=== PATIENT | male | born 1950 | race Caucasian/White ===

== ENCOUNTER → 2018-01-14 15:53 | Outpatient (CLI) | payer MEDICARE, OTHER, SELFPAY ==
--- NOTE | 2018-01-14 10:30 | LES_PTH ---
PATIENT: JOEY GONZALES LOC: [facility] U#:[id number] AGE/SX: 75/M ROOM: RE01/14/[address]: Dr. Buzz Bhat MD : 1950 BED: DIS: SPEC #: [id number] RECD: 01/14/18 15:22 STATUS: ANDRES AI #: [id number] PADMINI: 01/14/18 10:[address]: Buzz Bhat DEPT: SURGICAL PATHOLOGY RECD BY: Yonatan Chaves Tissues: Skin of leg, NOS Procedures: Surgery Specimen Level IV HEADER OPERATION: Punch biopsy PRE-OP DIAGNOSIS: Nonhealing skin lesion back TISSUE SUBMITTED: 6 mm punch MICROSCOPIC DIAGNOSIS Skin lesion of back, punch biopsy: Basal cell carcinoma, superficial, nodular. See comment. AM:rossi 01/16/18 COMMENT The lesion is focally ulcerated and extends to the peripheral margin of excision. Clinical correlation is suggested. MICROSCOPIC DESCRIPTION Slides are reviewed. GROSS DESCRIPTION Received is one container labeled with the patient's name and not further designated. The specimen consists of a punch biopsy of nunez-white skin measuring 0.6 cm in diameter and 0.7 cm in length. The specimen is longitudinally bisected and submitted entirely in one cassette. / SJ:rg 01/15/18 TC:0 [facility]: [id number]
== END ==
PROVIDERS: Family Provider Family Medicine; PCP Family Medicine; Visit Provider Family Medicine
DX: L98.9 Disorder of the skin and subcutaneous tissue, unspecified (principal)
CPT/HCPCS: 88305

== ENCOUNTER → 2018-03-07 16:32 | Outpatient (CLI) | payer MEDICARE, SELFPAY ==
--- NOTE | 2018-03-07 16:38 | RAD_ITS ---
STUDY: X-RAY - RIGHT WRIST REASON FOR EXAM: Male, 67 years old. Wrist pain TECHNIQUE: 4 view(s) of the wrist were obtained. COMPARISON: None. FINDINGS: Normal visualized distal radius and ulna. Normal radiocarpal articulation. Normal distal radioulnar articulation. Normal carpal bones. Normal carpal articulations. Normal carpometacarpal articulation of the thumb. Normal second through fifth carpometacarpal articulations. There is a subtle lucency at the base of the first metacarpal. This may represent a nondisplaced fracture. The soft tissue structures are unremarkable. RAD/Wrist min 3 Views IMPRESSION: Question nondisplaced fracture at the base of the first metacarpal. Please clinically correlate for point tenderness in this region. Electronically Signed: Kip Viera DO at 8:47 EDT Tel , Service support ,
== END ==
PROVIDERS: Family Provider Family Medicine; PCP Family Medicine; Visit Provider Family Medicine
DX: M25.531 Pain in right wrist (principal)
CPT/HCPCS: 73110

== ENCOUNTER → 2018-03-14 15:59 | Outpatient (CLI) | payer MEDICARE, SELFPAY | PROVIDERS: Family Provider Family Medicine; PCP Family Medicine; Visit Provider Family Medicine | DX: T81.4XXA Infection following a procedure, initial encounter (principal) | CPT/HCPCS: 87070; 87077; 87186; 87205 ==

== ENCOUNTER → 2019-01-13 07:50 | Outpatient (CLI) | payer MEDICARE, SELFPAY ==
[2019-01-13] VITALS (10 sets, daily range): BP systolic 124–142; BP diastolic 62–76; PULSE 60–71; RESP 12–18; O2SAT 94–100; BMI 41.6
--- NOTE | 2019-01-13 | BON_PTH ---
PATIENT: JOEY GONZALES LOC: CT U#:[id number] AGE/SX: 75/M ROOM: RE01/13/[address]: Dr. Dani Alvarez MD : 1950 BED: DIS: SPEC #: [id number] RECD: 01/13/19 09:46 STATUS: ANDRES CLOUD #: [id number] PADMINI: 01/13/19 00:[address]: Dani Alvarez DEPT: SURGICAL PATHOLOGY RECD BY: Josemanuel Rodriguez ENTERED: 01/13/19 10:51 SP TYPE: Bone OTHR DR: Dr. Buzz Bhat MD Tissues: Tibia, NOS Procedures: Surgery Specimen Level IV HEADER OPERATION: CT guided right tibia biopsy PRE-OP DIAGNOSIS: Right tibial lesion TISSUE SUBMITTED: Right proximal tibia, 18 gauge core x5 MICROSCOPIC DIAGNOSIS Right tibial lesion, CT-guided proximal tibia biopsy: Peripheral blood and scant degenerative tissue, not further diagnostic. CE:rossi 01/14/19 COMMENT Case has been reviewed in consultation with Dr. Haywood who concurs with the above diagnosis. IDC:AM MICROSCOPIC DESCRIPTION Slides are reviewed. GROSS DESCRIPTION Received in fixative is one container labeled with the patient's name and designated right tibial lesion. The specimen consists of cores of reddish-nunez soft tissue measuring in aggregate 1 x 0.1 x <0.1 cm. The specimen is submitted in its entirety in one cassette. / JASIEL:rossi 01/13/19 TC:5 CPT: 38720
--- NOTE | 2019-01-13 08:13 | CT_ITS ---
PROCEDURE: CT GUIDED biopsy of the proximal right tibia. DATE: January 13, 2019. INDICATION: Male, 68 years old. Lytic lesion in the proximal metaphysis of the right tibia. PHYSICIAN: Ilan Pacheco M.D. RADIATION DOSAGE (If Supplied By Facility): CTDIvol = ( 12.2 ) mGy, DLP = ( 160.57 ) mGycm. Individualized dose optimization techniques were utilized. PROCEDURE: The risks, benefits, and alternatives to the procedure were explained to the patient. The specific risk of hemorrhage requiring further treatment or intervention was detailed and accepted. Follow-up instructions were discussed with the patient as well. Written informed consent was obtained. The patient was brought into the CT suite and placed in the supine position. . An appropriate entry site was identified. The overlying skin was prepped and draped in the usual sterile fashion. 1% lidocaine was administered subcutaneously for local anesthesia. Conscious sedation was performed. The patient received 2 mg of Versed and 75 mcg of fentanyl. Conscious sedation was started at 9:17 AM and terminated at 9:26 AM. The patient was independently monitored by the department nurse. Under CT guidance, a total of 5 passes were performed utilizing an 18-gauge core biopsy needle system. The specimens were then placed in the appropriate fluid and transported to the laboratory for analysis. Hemostasis was obtained. The patient tolerated the procedure well without immediate complications. CT/Biopsy/Inj or Needle Placement IMPRESSION: Successful CT guided biopsy of the proximal tibial lesion, as described above. Electronically Signed: Ilan Pacheco, at 10:08 EDT , Service support ,
[2019-01-13 08:15] LABS: Absolute Lymphocyte Count 2.25 X10^3/ul (0.83-4.51); Basophil# 0.02 X10^3/uL; Basophil% 0.2 % (0-1); Eosinophil# 0.16 X10^3/uL; Hematocrit 44.5 % (40-54); Hemoglobin 14.7 g/dl (13.0-16.5); Lymphocyte # 2.25 X10^3/ul (4.0); Lymphocyte % 27.6 % (19-41); Mean Corpuscular Volume 87.8 fL (80-94); Mean Platelet Vol. 9.8 fl (6.2-12.0); Monocyte# 0.71 X10^3/uL; Monocyte% 8.7 % (0-10); Neutrophil % 61.4 % (47-70); Platelet Count 165 K/mm3 (150-450); RBC Distribution Width CV 14.3 % (11.6-14.6); RBC Distribution Width SD 45.9 fl (35.1-43.9); Red Blood Count 5.07 M/mm3 (4.6-6.2); White Blood Count 8.2 K/mm3 (4.4-11.0)
[2019-01-13 08:16] LABS: POSITIVE COUNT NO; POSITIVE DIFFERENTIAL NO; POSITIVE MORPHOLOGY NO
[2019-01-13 08:24] LABS: Creatinine, Serum 1.24 mg/dL (0.70-1.30); EST Glomerular Filtration Rate 61 mL/min (>60); Est Glom Filt Rate - Afr Amer 74 mL/min (>60)
[2019-01-13 08:29] LABS: Partial Thromboplast Time 30.3 Seconds (24.1-36.2)
[2019-01-13] MEDS: Midazolam 2 MG/2 ML Syringe IV (09:16)
[2019-01-13] MEDS: fentaNYL 100 MCG/2 ML Ampul IV ×2 (09:17→09:43)
== END ==
LOC: CT 07:55
PROVIDERS: Family Provider Family Medicine; PCP Family Medicine; Referring Provider Orthopaedic Surgery; Visit Provider Orthopaedic Surgery
DX: D16.21 Benign neoplasm of long bones of right lower limb (principal); G80.9 Cerebral palsy, unspecified; E78.00 Pure hypercholesterolemia, unspecified; K21.9 Gastro-esophageal reflux disease without esophagitis; E66.9 Obesity, unspecified; Z79.899 Other long term (current) drug therapy
CPT/HCPCS: 20225; 36415; 77012; 82565; 85025; 85610; 85730; 88305; 88311; 99156; J7040; A4216

== ENCOUNTER → 2023-05-24 | Outpatient (CLI) | payer MEDICARE, SELFPAY ==
[2023-05-24 15:29] LABS: AST(SGOT) 22 U/L (15-37); Alanine Aminotransfer ALT/SGPT 28 U/L (16-61); Albumin, Serum 3.8 g/dL (3.2-5.0); Alkaline Phosphatase 68 U/L (45-117); Anion Gap 2 (5-15); BUN 16 mg/dL (7-18); BUN/Creat Ratio 14.7 RATIO (10-20); Calcium,Total 9.3 mg/dL (8.5-10.1); Chloride 106 mmol/L (98-107); Creatinine, Serum 1.09 mg/dL (0.70-1.30); EST Glomerular Filtration Rate 70 mL/min (>60); Est Glom Filt Rate - Afr Amer 85 mL/min (>60); Globulin 3.9 g/dL (2.2-4.2); Glucose 174 mg/dL (74-106); Potassium 4.3 mmol/L (3.5-5.1); Protein, Total 7.7 g/dL (6.4-8.2); Sodium Level 137 mmol/L (136-145)
== END | disposition home or self-care (01) ==
LOC: MFPLAB 12:21
PROVIDERS: PCP Family Medicine; Visit Provider Family Medicine
DX: I10 Essential (primary) hypertension (principal)
CPT/HCPCS: 36415; 80053

== ENCOUNTER 2023-08-11 18:25 | Emergency (ER) | payer MEDICARE, SELFPAY ==
[2023-08-11 18:27] VITALS: BP 118/61; PULSE 57; RESP 15; TEMP 36.5; O2SAT 95
--- NOTE | 2023-08-11 19:09 | EKG12_ITS ---
Test Reason : dysrhythmia Blood Pressure : / mmHG Vent. Rate : 053 BPM Atrial Rate : 053 BPM P-R Int : 176 ms QRS Dur : 090 ms QT Int : 456 ms P-R-T Axes : 011 064 054 degrees QTc Int : 427 ms Sinus bradycardia Otherwise normal ECG Confirmed by JOSE MONZON, JIGNA ([id number]), industrial editor LAYLA CRISTINA ([id number]) on 08/13/2023 1:25:39 PM Referred By: Confirmed By:JIGNA GARCIA MD
[2023-08-11 19:29] VITALS: BMI 41.3
[2023-08-11 19:30] LABS: Absolute Lymphocyte Count 1.98 X10^3/uL (0.83-4.51); Absolute Neutrophil Count 7.2 X10^3/uL (2.0-7.7); Basophil# 0.04 X10^3/uL; Basophil% 0.4 % (0-1); Eosinophil# 0.19 X10^3/uL; Eosinophils% 1.8 % (0-5); Hematocrit 43.9 % (40-54); Hemoglobin 14.2 g/dL (13.0-16.5); Lymphocyte # 1.98 X10^3/ul (0.83-4.51); Mean Corp Hgb Conc 32.3 g/dL (32-36); Mean Corpuscular Hgb 28.7 pg (27.0-32.0); Mean Corpuscular Volume 88.9 fL (80-94); Mean Platelet Vol. 10.1 fl (6.2-12.0); Monocyte# 0.96 X10^3/uL; Monocyte% 9.2 % (0-10); NRBC Flagged by Analyzer 0 % (0-5); Neutrophil # 7.19 X10^3/uL (2.7-7.7); Neutrophil % 69.1 % (47-70); Platelet Count 178 K/mm3 (150-450); RBC Distribution Width CV 13.2 % (11.6-14.6); RBC Distribution Width SD 42.8 fl (35.1-43.9); Red Blood Count 4.94 M/mm3 (4.6-6.2); White Blood Count 10.4 K/mm3 (4.4-11.0)
[2023-08-11 19:49] VITALS: TEMP 36.6
[2023-08-11] MEDS: Morphine 4 MG/ML Syringe IV (19:56)
[2023-08-11] MEDS: Ondansetron 4 MG/2 ML Vial IV (19:57)
[2023-08-11 20:13] LABS: AST(SGOT) 84 U/L (15-37); Alanine Aminotransfer ALT/SGPT 57 U/L (16-61); Albumin, Serum 3.6 g/dL (3.2-5.0); Alkaline Phosphatase 80 U/L (45-117); Anion Gap 6 (5-15); BUN 16 mg/dL (7-18); BUN/Creat Ratio 14.3 RATIO (10-20); Bilirubin, Direct 0.88 mg/dL (0.00-0.30); Calcium,Total 9.5 mg/dL (8.5-10.1); Chloride 108 mmol/L (98-107); Creatinine, Serum 1.12 mg/dL (0.70-1.30); EST Glomerular Filtration Rate 68 mL/min (>60); Est Glom Filt Rate - Afr Amer 82 mL/min (>60); Globulin 3.8 g/dL (2.2-4.2); Glucose 194 mg/dL (74-106); Lipase 29 U/L (13-75); Potassium 4.2 mmol/L (3.5-5.1); Protein, Total 7.4 g/dL (6.4-8.2); Sodium Level 139 mmol/L (136-145); Troponin-I HS 9 pg/mL (3.0-78.0)
[2023-08-11 20:15] VITALS: PULSE 70; RESP 17; O2SAT 97
--- NOTE | 2023-08-11 20:16 | US_ITS ---
STUDY: ABDOMINAL ULTRASOUND - RIGHT UPPER QUADRANT REASON FOR VISIT: Male, 73 years old ruq abd pain TECHNIQUE: Ultrasound evaluation of the right upper quadrant was performed with real-time and static garcia-scale imaging. TECHNICAL QUALITY: Adequate. COMPARISON: None. FINDINGS: Liver: The liver measures 17.5 cm. There is increased echogenicity consistent with fatty infiltration. The bile ducts are within normal limits. There is hepatic color flow. The direction of portal flow is hepatopetal. There is no demonstrated mass lesion. Gallbladder: Normal distended gallbladder. The gallbladder wall measures 2 mm. There is a negative sonographic Price''s sign. There is no pericholecystic fluid. There are no gallstones. Common Bile Duct (C.B.D.): The common bile duct measures 7 mm. Pancreas: There is nonvisualization of the pancreas. st. Right Kidney: Normal size of the right kidney. The right kidney measures 10.7 cm. Normal renal cortex. The right cortex measures 1.2 cm. There is no demonstrated renal mass or cyst. There is no right hydronephrosis. US/Gallbladder IMPRESSION: Fatty infiltration of the liver. Electronically Signed: Jens Vaca MD at 22:06 [facility] ,
--- NOTE | 2023-08-11 20:42 | CT_ITS ---
STUDY: CT ABDOMEN AND PELVIS WITH CONTRAST REASON FOR EXAM: Male, 73 years old. abdominal pain RADIATION DOSAGE (If Supplied By Facility): CTDIvol = ( 30.84 ) mGy, DLP = ( 1817.36 ) mGycm TECHNIQUE: Transaxial images were obtained from the dome of the diaphragm to the symphysis pubis without oral contrast. IV 100mL Isovue-370 was administered. Sagittal and coronal images were reconstructed. Individualized dose optimization techniques were used for this CT. COMPARISON: None. FINDINGS: The visualized lung bases are unremarkable. The visualized portions of the heart are within normal limits. Normal liver. Normal gallbladder and extrahepatic biliary system. Normal spleen. Normal pancreas. Normal bilateral adrenal glands. Normal right kidney. Normal left kidney. Normal visualized stomach. Normal small intestine. There are multiple colonic diverticula consistent with diverticulosis. The appendix is visualized and appears normal. Normal abdominal aorta. Normal inferior vena cava. Normal retroperitoneum. Normal urinary bladder. Normal abdominal wall. Normal osseous structures. CT/Abdomen/Pelvis W IV Cont ONLY IMPRESSION: Sigmoid diverticulosis without diverticulitis. Electronically Signed: Jens Vaca MD at 22:55 EST ,
--- NOTE | 2023-08-11 23:02 | ED.VIS.GI ---
HPI HPI - GI History of Present Illness Chief Complaint: Abd Pain Narrative Narrative: 73-year-old male presenting with abdominal pain. He states the pain started about 530. The last meal he ate was ham at 4. Patient states he eats sausage make muffins for breakfast with hashbrowns. He did not have any symptoms with this. Patient describes the pain as aching and throbbing in the epigastrium. No right upper quadrant or lower abdominal pain. No fever or chills. He vomited once when he arrived in the ER but otherwise feels okay. PFSH PFSH Medical History Hyperchloremia Hypertension Home Medications lisinopril 20 mg tablet 20 mg PO DAILY 01/13/19 [History Last Taken Unknown] simvastatin 40 mg tablet 40 mg PO QHS 01/13/19 [History Last Taken Unknown] ondansetron 4 mg disintegrating tablet 4 mg PO Q8H PRN PRN Nausea #20 tabs 08/11/23 [Rx Last Taken Unknown] Allergy/AdvReac Type Severity Reaction Status Date / Time No Known Allergies Allergy Verified 08/11/23 18:31 Social History Smoking Status: Never smoker ROS ROS ED Constitutional Constitutional ED: Denies chills, fever(s) or sweats Eyes Eyes: Denies blurry vision or change in vision ENT ENT ED: Denies ear pain, rhinorrhea or sore throat Cardiovascular Cardiovascular: Denies chest pain, palpitations or racing heartbeat Respiratory/Chest Respiratory/Chest: Denies cough, dyspnea or sputum Gastrointestinal Gastrointestinal: Reports abdominal pain, nausea and vomiting; Denies constipation or diarrhea Genitourinary Genitourinary ED: Denies dysuria, hematuria or urinary frequency Musculoskeletal Musculoskeletal: Denies arthralgias, myalgias or neck pain Integumentary Denies abscess, Abrasions or rash Neurologic Neurologic: Denies headache(s), paresthesias or weakness Psychiatric Psychiatric: Denies anxiety, depression, suicidal ideation or suicidal thoughts Endocrine Endocrinology: Denies polydipsia or polyuria EXAM Physical Exam Const Vital Signs: 08/11/23 18:27 08/11/23 19:49 08/11/23 20:15 Temperature 97.7 F L 98 F Temperature Source Oral Oral Pulse Rate 57 L 70 Respiratory Rate 15 17 Blood Pressure 118/61 Blood Pressure Mean 80 Pulse Ox 95 97 Oxygen Delivery Method Room Air Room Air Positive well nourished and obese General Appearance ED: NAD; Negative for pallor Nutritional Appearance: obese HEENT Reports moist mucous membranes normocephalic and atraumatic Eyes PERRL and EOMs intact bilaterally General Eye ED: Negative for pale conjunctiva or scleral icterus Resp normal respiratory effort Cardio regular rate and regular rhythm GI GI Narrative: Negative Price sign. Palpation: tender epigastric; Negative for guarding or rigid Back/Spine no CVA tenderness Neuro CN's II-XII intact bilaterally Sensorium / Orientation: alert Psych mental status grossly normal and thought process normal Skin General Skin Exam: Negative for jaundice or pallor MDM MDM MDM Narrative Medical decision making narrative: Patient presenting with epigastric pain. Patient presenting with right flank pain. Differential includes colitis, diverticulitis, gastritis, pancreatitis, acute cholecystitis, constipation, appendicitis, UTI, pyelonephritis, calculi, ureteral calculi, obstruction, malignancy, dehydration, electrolyte abnormalities, ACS ischemia/dysrhythmia. Chest x-ray to rule out pneumonia.. CBC was obtained to assess with blood cell count, hemoglobin, platelets. CMP to assess liver function, renal function, electrolytes, glucose. EKG was obtained to assess for atypical cardiac presentation. High-sensitivity troponin obtained to assess for ischemia. CBC shows normal white blood cell count 10.4. Hemoglobin stable 14.2. Platelets 178. Renal function electrolytes normal. Liver panel shows a total bilirubin 1.5, direct bilirubin 0.88, AST 84, ALT 77. Alk phosphatase 80. Lipase 29. Patient pain-free after dose of morphine. CT of the abdomen pelvis with IV contrast was obtained which shows no acute process. Since his LFTs were elevated we did follow this with the right upper quadrant ultrasound which was negative. Patient still pain-free. We discussed follow-up with general surgery with possibility of HIDA scan. We discussed bland diet and low-fat diet. Return precautions discussed. Impression: 1. Abdominal pain 2. Nausea/vomiting 3. Elevated liver enzymes Lab Data Attestation: I reviewed the patient's lab results. Labs: Laboratory Results - last 24 hr 08/11/23 19:25 WBC 10.4 RBC 4.94 Hgb 14.2 Hct 43.9 MCV 88.9 MCH 28.7 MCHC 32.3 RDW Std Deviation 42.8 RDW Coeff of Gemma 13.2 Plt Count 178 MPV 10.1 Immature Gran % (Auto) 0.500 Neut % (Auto) 69.1 Lymph % (Auto) 19.0 [place] % (Auto) 9.2 Eos % (Auto) 1.8 Baso % (Auto) 0.4 Absolute Neuts (auto) 7.2 Absolute Lymphs (auto) 1.98 Nucleated RBC % 0 Sodium 139 Potassium 4.2 Chloride 108 H Carbon Dioxide 25.0 Anion Gap 6 BUN 16 Creatinine 1.12 Estim Creat Clear Calc 54.10 Est GFR (MDRD) Af Amer 82 Est GFR (MDRD) Non-Af 68 BUN/Creatinine Ratio 14.3 Glucose 194 H Calcium 9.5 Total Bilirubin 1.50 H Direct Bilirubin 0.88 H AST 84 H ALT 57 Alkaline Phosphatase 80 Troponin I High Sens 9 Total Protein 7.4 Albumin 3.6 Globulin 3.8 Lipase 29 Radiography Diagnostic Testing: Clinical Impression(s) from Imaging Studies Gallbladder Ultrasound 08/11/23 20:16 IMPRESSION: Fatty infiltration of the liver. Electronically Signed: Jens Vaca MD at 22:06 EST Reading Location ID and State: [id number] / [facility] Tel , Service support , Abdomen/Pelvis CT 08/11/23 20:42 IMPRESSION: Sigmoid diverticulosis without diverticulitis. Electronically Signed: eJns Vaca MD at 22:55 EST , Discharge Plan Triage Chief Complaint: Abd Pain ED Provider: Best Dixon Dx/Rx/DC Orders Instructions: ED Abdominal Pain Unkn Cause Male... Prescriptions: New ondansetron 4 mg tablet,disintegrating 4 mg PO Q8H PRN PRN (Reason: Nausea) Qty: 20 0RF No Action lisinopril 20 MG tablet 20 mg PO DAILY simvastatin 40 MG tablet 40 mg PO QHS Primary Care Provider: Buzz Bhat Referrals: Adryan Hargrove MD [Med Staff - Active Staff] - 3-5 Days Buzz Bhat MD [Primary Care Provider] - Disposition Disposition: Home, Self Care
== END 2023-08-11 23:18 | disposition home or self-care (01) ==
PROVIDERS: Emergency Provider Student in an Organized Health Care Education/Training Program; PCP Family Medicine; Visit Provider Student in an Organized Health Care Education/Training Program
DX: R10.9 Unspecified abdominal pain (principal); R11.2 Nausea with vomiting, unspecified; R74.8 Abnormal levels of other serum enzymes; I10 Essential (primary) hypertension; E78.00 Pure hypercholesterolemia, unspecified; Z79.899 Other long term (current) drug therapy
CPT/HCPCS: 74177; 76705; 80048; 80076; 83690; 84484; 85025; 93005; 96374; 96375; 99282; Q9967; A4216; J2405

== ENCOUNTER → 2023-09-04 | Outpatient (CLI) | payer MEDICARE, SELFPAY ==
--- NOTE | 2023-09-04 11:37 | RAD_ITS ---
EXAM: XR LEFT SHOULDER COMPLETE, 2 OR MORE VIEWS CLINICAL INDICATION: pain TECHNIQUE: Two or more views of the left shoulder. COMPARISON: No relevant prior studies available. FINDINGS: BONES/JOINTS: No acute fracture or subluxation. Deformity of the distal portion of the left clavicle consistent with old fracture. SOFT TISSUES: Normal. No soft tissue swelling or gas. No radiopaque foreign body. RAD/Shoulder min 2 Views IMPRESSION: No acute abnormality. Old left clavicular fracture. Electronically Signed: Nickolas Vogel MD at 13:31 EST ,
--- NOTE | 2023-09-04 11:37 | RAD_ITS ---
EXAM: XR CERVICAL SPINE, 4 OR 5 VIEWS CLINICAL INDICATION: known DDD and worsening shoulder/arm pain TECHNIQUE: Frontal, lateral and bilateral oblique views of the cervical spine. COMPARISON: No relevant prior studies available. FINDINGS: VERTEBRAE: Loss of the normal cervical lordosis which may be due to muscle spasm or head positioning. No acute fracture or subluxation. DISC SPACES: Multilevel disc space narrowing and moderate vertebral body hypertrophy noted. Multilevel facet arthropathy. C5-6 neural foraminal narrowing related to uncinate joint hypertrophy. SOFT TISSUES: Normal. No prevertebral soft tissue widening. LUNG APICES: Clear. RAD/Cerv Spine 4 or 5 Views IMPRESSION: No acute fracture or subluxation. Moderate diffuse spondylosis. Electronically Signed: Nickolas Vogel MD at 13:13 EST ,
--- NOTE | 2023-09-04 11:37 | RAD_ITS ---
STUDY: X-RAY - RIGHT SHOULDER REASON FOR EXAM: Male, 73 years old. CP, mild pain, history of surgery. TECHNIQUE: 4 views of the right shoulder. COMPARISON: None. FINDINGS: Normal glenohumeral articulation. There are postoperative changes from prior acromioplasty/distal clavicle resection. Normal acromion. Normal humeral head and visualized proximal humerus. The soft tissue structures are unremarkable. There is no demonstrated acute fracture. Normal visualized pulmonary apex. RAD/Shoulder min 2 Views IMPRESSION: No demonstrated acute fracture. Electronically Signed: Donnell Alvarado MD at 12:03 EST ,
== END | disposition home or self-care (01) ==
LOC: MTRAD 11:37
PROVIDERS: PCP Family Medicine; Referring Provider Family Medicine; Visit Provider Family Medicine
DX: M25.512 Pain in left shoulder (principal); G80.8 Other cerebral palsy; M50.30 Other cervical disc degeneration, unspecified cervical region
CPT/HCPCS: 72050; 73030

== ENCOUNTER → 2023-12-04 | Outpatient (CLI) | payer MEDICARE, SELFPAY ==
--- NOTE | 2023-12-04 15:23 | RAD_ITS ---
STUDY: X-RAY - LEFT ELBOW REASON FOR EXAM: Male, 73 years old. Left. contusion/fall. Pain at proximal ulna and distal humerus. TECHNIQUE: 4 view(s) of the elbow. COMPARISON: None. FINDINGS: Nondisplaced radial neck fracture. There is degenerative arthrosis of the radiocapitellar and ulnotrochlear articulations. Joint effusion. RAD/Elbow min 3 Views IMPRESSION: Nondisplaced radial neck fracture. Joint effusion. Degenerative changes of the elbow joint. Electronically Signed: Ilan Pacheco MD at 14:34 EDT ,
== END | disposition home or self-care (01) ==
LOC: MTRAD 15:23
PROVIDERS: PCP Family Medicine; Referring Provider Family Medicine; Visit Provider Family Medicine
DX: M79.602 Pain in left arm (principal); W19.XXXA Unspecified fall, initial encounter
CPT/HCPCS: 73080

== ENCOUNTER → 2025-02-23 | Outpatient (CLI) | payer MEDICARE, SELFPAY ==
[2025-02-23 15:08] LABS: Absolute Lymphocyte Count 2.23 X10^3/uL (0.83-4.51); Absolute Neutrophil Count 4.3 X10^3/uL (2.0-7.7); Basophil# 0.04 X10^3/uL; Basophil% 0.5 % (0-1); Eosinophil# 0.37 X10^3/uL; Eosinophils% 4.8 % (0-5); Hematocrit 42.9 % (40-54); Hemoglobin 13.8 g/dL (13.0-16.5); Lymphocyte # 2.23 X10^3/ul (0.83-4.51); Mean Corp Hgb Conc 32.2 g/dL (32-36); Mean Corpuscular Hgb 28.5 pg (27.0-32.0); Mean Corpuscular Volume 88.6 fL (80-94); Mean Platelet Vol. 11.1 fl (6.2-12.0); Monocyte# 0.73 X10^3/uL; Monocyte% 9.5 % (0-10); NRBC Flagged by Analyzer 0 % (0-5); Neutrophil # 4.28 X10^3/uL (2.7-7.7); Neutrophil % 55.8 % (47-70); Platelet Count 171 K/mm3 (150-450); RBC Distribution Width CV 13.5 % (11.6-14.6); RBC Distribution Width SD 43.8 fl (35.1-43.9); Red Blood Count 4.84 M/mm3 (4.6-6.2); White Blood Count 7.7 K/mm3 (4.4-11.0)
[2025-02-23 15:37] LABS: ALB/GLOB Ratio 1.2 RATIO (0.9-2.4); AST(SGOT) 28 U/L (<=37); Alanine Aminotransfer ALT/SGPT 22 U/L (<=46); Alkaline Phosphatase 69 U/L (40-129); Anion Gap 9 (5-15); BUN 14 mg/dL (4-19); BUN/Creat Ratio 12.9 RATIO (10-20); Calcium,Total 9.2 mg/dL (7.6-11.0); Carbon Dioxide 24.7 mmol/L (21.0-32.0); Chloride 105 mmol/L (98-108); Cholesterol 160 mg/dL (<=200); Creatinine, Serum 1.08 mg/dL (0.70-1.20); EST Glomerular Filtration Rate 72 (>60); Globulin 3.4 g/dL (2.2-4.2); Glucose 146 mg/dL (70-99); High Density Lipoprotein 42 mg/dL; Low Density Lipoprotein Calc. 92 mg/dL; Potassium 4.9 mmol/L (3.3-5.1); Protein, Total 7.4 g/dL (5.9-8.4); Sodium Level 138 mmol/L (133-145); Total Bilirubin 0.49 mg/dL (0.00-1.30); Triglycerides 133 mg/dL; Very Low Density Lipoprotein 27 mg/dL (5-40); cholesterol:hdl ratio screen 3.84
[2025-02-23 18:36] LABS: Microalbumin,Random Urine 14.9 mg/L (NO RANGE EST.); Microalbumin:Creatinine Ratio 10.6 mg/g CRE
== END | disposition home or self-care (01) ==
PROVIDERS: PCP Family Medicine; Referring Provider Family Medicine; Visit Provider Family Medicine
DX: I10 Essential (primary) hypertension (principal); E78.00 Pure hypercholesterolemia, unspecified; M50.30 Other cervical disc degeneration, unspecified cervical region
CPT/HCPCS: 36415; 80053; 80061; 82043; 82570; 85025

== ENCOUNTER 2025-07-07 13:30 | Outpatient (RCR) | payer MEDICARE, SELFPAY | END 2025-07-26 23:59 | LOC: NS 13:30 | PROVIDERS: PCP Family Medicine; Referring Provider Family Medicine; Visit Provider Family Medicine | DX: Z71.3 Dietary counseling and surveillance (principal) | CPT/HCPCS: 97802 ==

== ENCOUNTER 2025-08-03 12:36 | Outpatient (RCR) | payer MEDICARE, SELFPAY | END 2025-08-26 23:59 | LOC: NS 12:36 | PROVIDERS: PCP Family Medicine; Referring Provider Family Medicine; Visit Provider Family Medicine | DX: Z71.3 Dietary counseling and surveillance (principal); E11.8 Type 2 diabetes mellitus with unspecified complications; G80.9 Cerebral palsy, unspecified; R20.2 Paresthesia of skin | CPT/HCPCS: 97803 ==